=== PATIENT | female | born 1960 | race Caucasian/White ===

== ENCOUNTER 2017-05-21 09:30 | Emergency (ER) | payer OTHER ==
[~2017-05-21] VITALS: Ht 157.5 cm; Wt 98.1 kg
[~2017-05-21 09:30] MED LIST: ATEN-122 PO; D-ME473S18 PO; FLUT9.9S NASAL; IBUP-1542 PO; NITR-58 PO; PHEN-616 PO; POLY10DR19 BOTH EYES; ZOC10 PO
[2017-05-21 09:44] VITALS: Ht 157.5 cm; Wt 98.1 kg
[2017-05-21] MEDS ORDERED: CEPH-443 PO (10:45)
[2017-05-21] MEDS ORDERED: SULF1TAB31 PO (10:45)
--- NOTE | 2017-05-21 12:34 | ERD ---
ER Documentation Chief Complaint Chief Complaint had I&D 15 of may has a probable infection did not take her bp meds to HPI 56-year-old female presents to the emergency department stating that she has mild increased pain at a repaired site with staple closure \ where she had a cyst removal on the back of her neck on May 15 with a blackjack dealer. Patient states that she has an appointment tomorrow to get the salena removed ROS All systems reviewed and are negative except as per history of present illness. Medications Home Meds Active Scripts Sulfamethoxazole/Trimethoprim* (Bactrim Ds* Tablet) 1 Each Tablet, 1 TAB PO BID , #10 TAB Prov:DANIEL FELDMAN PA-C 05/21/17 Cephalexin* (Keflex*) 500 Mg Capsule, 500 MG PO QID for 5 Days, CAP Prov:DANIEL FELDMAN PA-C 05/21/17 Fluticasone Propionate (Flonase Allergy Relief) 9.9 Ml [place].susp, 1 SPRAY NASAL DAILY, #1 BOTTLE TO EACH NOSTRIL Prov:ROHIT POLANCO PA-C 05/08/16 Dextromethorphan Hb-Promethazine Hcl (Promethazine DM Syrup) 473 Ml Syrup, 5 ML PO Q6H Y for COUGH, #4 OZ Prov:ROHIT POLANCO PA-C 05/08/16 Ibuprofen* (Motrin*) 600 Mg Tab, 600 MG PO Q6, #30 TAB Prov:ROHIT POLANCO PA-C 05/08/16 Polymyxin B Sulfate-TMP* (Polymyxin B-TMP Eye Drops*) 10 Ml Drops, 1 DROP BOTH EYES QID for 7 Days, EA Prov:BETH GIRALDO PA-C 11/20/15 Phenazopyridine Hcl* (Phenazopyridine Hcl*) 200 Mg Tablet, 200 MG PO TID for 3 Days, TAB Prov:BRI HARDIN PA-C 02/20/15 Nitrofurantoin Monohyd Macrocr* (Macrobid*) 100 Mg Capsr, 100 MG PO BID for 7 Days, CAP Prov:BRI HARDIN PA-C 02/20/15 Reported Medications Simvastatin (Simvastatin) 10 Mg Tablet, 10 MG PO DAILY 05/19/13 Atenolol* (Tenormin*) 50 Mg Tablet, 75 MG PO DAILY 03/14/10 Allergies Allergies: Coded Allergies: No Known Allergy (Verified , 05/08/16) PMhx/Soc History of Surgery: Yes (tubal ligation) Anesthesia Reaction: No Hx Neurological Disorder: No Hx Respiratory Disorders: No Hx Cardiac Disorders: Yes (HTN, HIGH CHOLESTEROL) Hx Psychiatric Problems: No Hx Miscellaneous Medical Probl: No Hx Alcohol Use: No Hx Substance Use: No Hx Tobacco Use: No Physical Exam Vitals Vital Signs Date Time Temp Pulse Resp B/P Pulse Ox O2 Delivery O2 Flow Rate FiO2 05/21/17 09:44 98.0 54 18 169/81 98 Physical Exam Const: [] Head: Atraumatic Eyes: Normal Conjunctiva ENT: Normal External Ears, Nose and Mouth. Neck: Full range of motion..~ No meningismus. Resp: Clear to auscultation bilaterally Cardio: Regular rate and rhythm, no murmurs Abd: Soft, non tender, non distended. Normal bowel sounds Skin: 4 salena intact with mild erythema around salena, no evidence of purulence Back: No midline or flank tenderness Ext: No cyanosis, or edema Neur: Awake and alert Psych: Normal Mood and Affect Procedures/MDM Is a 56-year-old female presenting to emergency department for a wound check of a closure of a cyst removal of the back of her neck. There was no evidence of abscess or significant cellulitis. Patient has an appointment to see her blackjack dealer tomorrow for staple removal, I remove the salena in the ER today. There is mild inflammation, I have given her prescription for Keflex Bactrim for prophylaxis until she is able to follow-up with a blackjack dealer Departure Diagnosis: Primary Impression: Removal of salena Additional Impression: Encounter for wound re-check Condition: Stable Patient Instructions: Wound Care Referrals: NO PRIMARY,CARE PHYSICIAN Additional Instructions: Visite a laurita campos para un EXAMEN.Regrese a estas instalaciones si no se mejora stacey esperbamos o stacey le estefanimos. DANIEL FELDMAN PA-C May 21, 2017 12:34
== END 2017-05-21 11:46 | disposition home or self-care (01) ==
LOC: FTE 09:30
DX: L53.9 Erythematous condition, unspecified (principal); I10 Essential (primary) hypertension; Z48.02 Encounter for removal of sutures
CPT/HCPCS: 99284

== ENCOUNTER 2019-01-26 07:54 | Emergency (ER) | payer OTHER ==
[~2019-01-26] VITALS: Ht 154.9 cm; Wt 99.4 kg
[~2019-01-26 07:54] MED LIST changes: +CEPH-443 PO; +HYDR-4011 PO; +NAPR-985 PO; -PHEN-616 PO; +PHEN-717 PO; +SULF1TAB31 PO
[2019-01-26 07:57] VITALS: BP 172/90; PULSE 81; RESP 20; Ht 154.9 cm; Wt 99.4 kg
--- NOTE | 2019-01-26 10:05 | ERD ---
ER Documentation Chief Complaint Chief Complaint back pain due to mechanical fall HPI 58-year-old female presenting with back pain due to mechanical fall. Patient fell 1 week ago and sustained a bruise to her arm and had some mild back pain. She denies any numbness or tingling down her legs denies abdominal pain and has not taken medications for her symptoms. She states the pain is worse with movement. Denies other medical problems. She states she fell forward and not on her back. NKDA. Surgical history denies. Social history denies ROS All systems reviewed and are negative except as per history of present illness. Medications Home Meds Active Scripts Naproxen* (Naprosyn*) 500 Mg Tablet, 500 MG PO BID PRN for PAIN AND/OR INFLAMMATION, #30 TAB Prov:ROHIT POLANCO PA-C 01/26/19 Hydrocodone/Acetaminophen ([place] 5-325 Tablet) 1 Each Tablet, 1 TAB PO Q6H PRN f or PAIN, #7 TAB Prov:ROHIT POLANCO PA-C 01/26/19 Sulfamethoxazole/Trimethoprim* (Bactrim Ds* Tablet) 1 Each Tablet, 1 TAB PO BID, #10 TAB Prov:DANIEL FELDMAN PA-C 05/21/17 Cephalexin* (Keflex*) 500 Mg Capsule, 500 MG PO QID for 5 Days, CAP Prov:DANIEL FELDMAN PA-C 05/21/17 Fluticasone Propionate (Flonase Allergy Relief) 9.9 Ml [place].susp, 1 SPRAY NASAL DAILY, #1 BOTTLE TO EACH NOSTRIL Prov:ROHIT POLANCO PA-C 05/08/16 Dextromethorphan Hb-Promethazine Hcl (Promethazine DM Syrup) 473 Ml Syrup, 5 ML PO Q6H PRN for COUGH, #4 OZ Prov:ROHIT POLANCO PA-C 05/08/16 Ibuprofen* (Motrin*) 600 Mg Tab, 600 MG PO Q6, #30 TAB Prov:ROHIT POLANCO PA-C 05/08/16 Polymyxin B Sulfate-TMP* (Polymyxin B-TMP Eye Drops*) 10 Ml Drops, 1 DROP BOTH EYES QID for 7 Days, EA Prov:BETH GIRALDO PA-C 11/20/15 Phenazopyridine Hcl* (Phenazopyridine Hcl*) 200 Mg Tablet, 200 MG PO TID for 3 Days, TAB Prov:LASHAWNBRI JOSEPH 02/20/15 Nitrofurantoin Monohyd Macrocr* (Macrobid*) 100 Mg Capsr, 100 MG PO BID for 7 Days, CAP Prov:LASHAWNBRI JOSEPH 02/20/15 Reported Medications Simvastatin (Simvastatin) 10 Mg Tablet, 10 MG PO DAILY 05/19/13 Atenolol* (Tenormin*) 50 Mg Tablet, 75 MG PO DAILY 03/14/10 Allergies Allergies: Coded Allergies: No Known Allergy (Verified , 05/08/16) PMhx/Soc History of Surgery: Yes (tubal ligation) Anesthesia Reaction: No Hx Neurological Disorder: No Hx Respiratory Disorders: No Hx Cardiac Disorders: Yes (HTN, HIGH CHOLESTEROL) Hx Psychiatric Problems: No Hx Miscellaneous Medical Probl: No Hx Alcohol Use: No Hx Substance Use: No Hx Tobacco Use: No Smoking Status: Never smoker FmHx Family History: No diabetes, No coronary disease, No other Physical Exam Vitals Vital Signs Date Temp Pulse Resp B/P (MAP) Pulse Ox O2 O2 Flow FiO2 Time Delivery Rate 01/26/19 97.2 81 20 172/90 95 07:57 (117) Physical Exam GENERAL: The patient is well-appearing, well-nourished, in no acute distress CHEST: Clear to auscultation bilaterally. There are no rales, wheezes or rhonchi. HEART: Regular rate and rhythm. No murmurs, clicks, rubs or gallops. ABDOMEN:Soft, nontender and nondistended. Good bowel sounds. No rebound or guarding. No gross peritonitis. No gross organomegaly or masses. No Tang sign or McBurney point tenderness. BACK: Tender to palpation in the lumbar region with no bony step-offs or crepitus. Generalized tenderness. EXTREMITIES: Equal pulses bilaterally. There is no peripheral clubbing, cyanosis or edema. No focal swelling or erythema. Full range of motion. Grossly neurovascularly intact. NEUROLOGIC: Alert and oriented. Cranial nerves II through XII intact. Motor strength in all 4 extremities with 5 out of 5 strength. Sensation grossly intact. Normal speech and gait. SKIN: There is no apparent rash or petechiae. The skin is warm and dry. Results 24 hrs Laboratory Tests Test 01/26/19 08:49 Bedside Urine pH (LAB) 6.5 Bedside Urine Protein (LAB) Trace Bedside Urine Glucose (UA) Negative Bedside Urine Ketones (LAB) Negative Bedside Urine Blood 3+ Bedside Urine Nitrite (LAB) Negative Bedside Urine Leukocyte Esterase (L Negative Procedures/MDM DIAGNOSTIC IMAGING REPORT Patient: JJ HERNANDEZ : 1960 Age: 58 Sex: F MR #: [id number] DOS: 01/26/19 0833 Ordering MD: PAU POLANCO PA-C Location: [facility] Room/Bed: PROCEDURE: XR Lumbar Spine. CLINICAL INDICATION: back pain TECHNIQUE: AP, lateral and cone-down lateral view of the lumbar spine were obtained. COMPARISON: CT 05/18/2013 FINDINGS: There is possible mild compression fracture of the superior aspect of L1. There is L5 vertebral bilateral pars interarticularis defects. There is a 7 mm grade 1 L5 on S1 anterolisthesis. There is moderate L5-S1 intervertebral disc degeneration. There is disc space narrowing and spondylosis. The soft tissues are unremarkable. RPTAT: AA IMPRESSION: Possible mild compression fracture of the superior aspect of L1, age indeterminate however new since 2012. Follow-up MRI is recommended. L5 vertebral bilateral pars interarticularis defects. Grade 1 L5 on S1 anterolisthesis. Moderate L5-S1 intervertebral disc degeneration. DM: 58-year-old female presenting with back pain. Patient likely has a chronic compression fracture which is seen on x-ray is been exacerbated due to her fall. She has no neuro deficits on exam. I have low suspicion for discitis or epidural abscess. I have low suspicion for cauda equina. Patient is discharged with supportive medications and told to follow-up with primary care within 1 to 2 days for close evaluation. Patient is recommended to follow-up with primary doctor as well as orthopedist. Patient is told symptoms change or worsen to return immediately to the ER. All questions answered at discharge Departure Diagnosis: Primary Impression: Back pain Condition: Stable Patient Instructions: Back Pain (Acute Or Chronic) Referrals: [facility] (PCP) Additional Instructions: FOLLOW UP WITH YOUR PRIMARY CARE PHYSICIAN TOMORROW.Return to this facility if you are not improving as expected. ROHIT POLANCO PA-C Jan 26, 2019 10:05
== END 2019-01-26 10:07 | disposition home or self-care (01) ==
LOC: FTE 07:54
DX: M54.9 Dorsalgia, unspecified (principal); I10 Essential (primary) hypertension
CPT/HCPCS: 72100; 81003; Z7502